=== PATIENT | male | born 1930 ===

== ENCOUNTER → 2016-04-05 | Outpatient (CLI) | payer MEDICARE, MEDICAID ==
[~2016-04-05] MED LIST: MELOXICAM7.5 MG/5 M ORAL; NORCO 10-325 T1 EACH ORAL; PLAVIX75 MG ORAL; PRAVASTATIN SOD10 M1 ORAL
--- NOTE | 2016-04-05 12:09 | Diagnostic Imaging Report ---
Indication: Cough Comparison: 01/05/16 2 views of the chest obtained. Bones are osteopenic. Aorta is enlarged. Heart size is normal. Lungs are hyperexpanded. No infiltrate is identified. Impression: COPD Atherosclerotic vascular disease Osteopenia
== END | disposition home or self-care (01) ==
LOC: RAD 09:49
DX: R05 Cough (principal); I25.10 Atherosclerotic heart disease of native coronary artery without angina pectoris; M85.80 Other specified disorders of bone density and structure, unspecified site
CPT/HCPCS: 71020

== ENCOUNTER 2016-06-25 13:58 | Inpatient (IN) | payer MEDICARE, MEDICAID ==
[~2016-06-25] VITALS: Ht 172.7 cm; Wt 70.3 kg
--- NOTE | 2016-06-25 16:20 | History & Physical ---
History and Physical History & Physicial HISTORY OF PRESENT ILLNESS elderly male with severe bone pain and disability; patient with diffuse pain; patient continues to smoke; he has no shortness of breath; he denies any diarrhea or vomiting patient events worsening over the past several days; no fevers or chills. no falls or trauma care reviewed in detail. no ill contacts; Active Medications (reviewed today): VITAMIN D 2000 UNIT ORAL CAPS (CHOLECALCIFEROL) 1 tab qd IPRATROPIUM BROMIDE 0.03 % NASAL SOLN (IPRATROPIUM BROMIDE) 2 puffs intranasaly 3 times daily PRAVASTATIN SODIUM 10 MG TABS (PRAVASTATIN SODIUM) 1 tab qd DIOVAN 80 MG CAP (VALSARTAN) 1 by mouth every day ASPIRIN 81 MG TABS (ASPIRIN) 1 by mouth every day Current Allergies: No known allergies No Known Drug Allergies Past History Past Medical History (reviewed - no changes required): Hypercholesterolemia -on meds prostate cancer prior XRT and po chemotherapy Surgical History (reviewed - no changes required): Removal of prostate tumor ( approximately 2009) Stroke 2012 Family History (reviewed - no changes required): Father is . Mother is . Social History (reviewed - no changes required): Luc is a retired person. Luc lives with his ex- spouse. He is with 1 child. Risk Factors: Smoked Tobacco Use: Current every day smoker Cigarettes: Yes -- 1/2 pack(s) per day, Year started: 1955 Years smoked: 60 Smokeless Tobacco Use: Never Passive smoke exposure: no Drug use: no Caffeine use: 4 drinks per day Alcohol use: no Seatbelt use: 100 % Sun Exposure: occasionally Review of Systems General: fatigue, malaise, weight loss Eyes: denies blurring, diplopia, irritation, discharge, vision loss, eye pain, photophobia Ear/Nose/Throat: some rhinitis reduced hearing Cardiovascular: Denies chest pain, palpitations, syncope, dyspnea on exertion, orthopnea, PND, peripheral edema Respiratory: cough-mainly at night wheezing and chest tightness Gastrointestinal: Denies nausea, vomiting, diarrhea, constipation, change in bowel habits, abdominal pain, melena, hematochezia, jaundice Genitourinary: prostate disorder Musculoskeletal: see HPI Skin: denies rash, itching, dryness, suspicious lesions Neurologic: memory loss Psychiatric: denies depression, anxiety, memory loss, mental disturbance, suicidal ideation, hallucinations, paranoia Endocrine: denies cold intolerance, heat intolerance, polydipsia, polyphagia, polyuria, weight change Hematologic/Lymphatic: denies abnormal bruising, bleeding, enlarged lymph nodes Allergic/Immunologic: denies urticaria, hay fever, persistent infections, HIV exposure Physical Exam General Appearance: well nourished, well hydrated, no acute distress Respiratory Respiratory Effort: no intercostal retractions or use of accessory muscles Palpation: normal fremitus Auscultation: no rales or wheezes moderate air entry without change Cardiovascular Palpation: no thrill or palpable murmurs, no displacement of PMI Auscultation: S1, S2, no murmur, rub, or gallop Peripheral Circulation: no cyanosis, clubbing, edema, or varicosities Musculoskeletal Gait and Station: unsteady has pain with range of motion alert and oriented x 3 Assessment severe pain stroke per history bone pain concern for metastatic disease history of abnormal CT chest Plan care noted bone scan check labs body CT ot and pt pain control DESTINI NEGRETE Jun 25, 2016 16:20
[2016-06-25 17:55] VITALS: BP 128/75
[2016-06-25] MEDS: Meloxicam 15 MG TAB ORAL SCH (18:05)
[2016-06-25] MEDS: Norco 5mg/325mg tab ORAL PRN (18:07)
[2016-06-25 20:14] LABS: BASOPHILS % (AUTO) 0.4 % (0.0-2.0); EOSINOPHILS % (AUTO) 0.4 % (0.0-3.0); LYMPHOCYTES % (AUTO) 8.1 % (20.0-45.0); MEAN CORPUSCULAR HEMOGLOBIN 31.4 PG (27.0-31.0); MEAN CORPUSCULAR HGB CONC 33.2 G/DL (32.0-36.0); MEAN CORPUSCULAR VOLUME 95 FL (80-99); MONOCYTES % (AUTO) 6.3 % (1.0-10.0); NEUTROPHILS % (AUTO) 84.8 % (45.0-75.0); PLATELET COUNT 174 K/UL (150-450); RED BLOOD COUNT 5.47 M/UL (4.70-6.10); RED CELL DISTRIBUTION WIDTH 12.9 % (11.6-14.8); WHITE BLOOD COUNT 10.6 K/UL (4.8-10.8)
[2016-06-25 20:29] LABS: ALANINE AMINOTRANSFERASE 11 U/L (3-41); ALBUMIN/GLOBULIN RATIO 1.2 (1.0-2.7); ANION GAP 19 (5-15); ASPARTATE AMINO TRANSFERASE 15 U/L (5-40); CALCIUM 9.4 mg/dL (8.6-10.2); CARBON DIOXIDE 22 mEQ/L (20-30); CHLORIDE 94 mEQ/L (98-107); CREATININE 2.4 mg/dL (0.7-1.2); HEMOLYSIS 5; POTASSIUM 4.7 mEQ/L (3.4-4.9); SODIUM 135 mEQ/L (135-145); TOTAL PROTEIN 6.9 g/dL (6.6-8.7)
[2016-06-25 20:43] LABS: BILIRUBIN,DIRECT 0.3 mg/dL (0.1-0.3)
[2016-06-25 23:51] VITALS: BP 130/76
[2016-06-26 04:00] VITALS: BP 115/74
[2016-06-26 06:56] LABS: ALANINE AMINOTRANSFERASE 10 U/L (3-41); ALBUMIN/GLOBULIN RATIO 1.2 (1.0-2.7); ANION GAP 14 (5-15); ASPARTATE AMINO TRANSFERASE 12 U/L (5-40); CALCIUM 9.1 mg/dL (8.6-10.2); CARBON DIOXIDE 25 mEQ/L (20-30); CHLORIDE 101 mEQ/L (98-107); CREATININE 2.3 mg/dL (0.7-1.2); HEMOLYSIS 3; POTASSIUM 4.5 mEQ/L (3.4-4.9); SODIUM 140 mEQ/L (135-145); TOTAL PROTEIN 6.4 g/dL (6.6-8.7)
[2016-06-26 07:14] LABS: BASOPHILS % (AUTO) 0.6 % (0.0-2.0); EOSINOPHILS % (AUTO) 1.4 % (0.0-3.0); MEAN CORPUSCULAR HEMOGLOBIN 30.9 PG (27.0-31.0); MEAN CORPUSCULAR HGB CONC 32.8 G/DL (32.0-36.0); MEAN CORPUSCULAR VOLUME 94 FL (80-99); MEAN PLATELET VOLUME 9.4 FL (6.5-10.1); MONOCYTES % (AUTO) 9.2 % (1.0-10.0); NEUTROPHILS % (AUTO) 77.7 % (45.0-75.0); PLATELET COUNT 193 K/UL (150-450); RED BLOOD COUNT 5.31 M/UL (4.70-6.10); RED CELL DISTRIBUTION WIDTH 12.8 % (11.6-14.8); WHITE BLOOD COUNT 9.1 K/UL (4.8-10.8)
[2016-06-26] MEDS: Norco 5mg/325mg tab ORAL PRN ×2 (08:18→20:40)
[2016-06-26] MEDS: Meloxicam 15 MG TAB ORAL SCH (08:18)
[2016-06-26 08:37] VITALS: BP 137/79
[2016-06-26 12:09] VITALS: BP 133/75
--- NOTE | 2016-06-26 12:39 | Diagnostic Imaging Report ---
Indication: Shortness of breath, weight loss, severe bone pain and disability Technique: Patient given oral contrast. No IV contrast, for referring physician request. Spiral acquisitions obtained through the chest, abdomen, and pelvis. Multiplanar reconstructions were generated. Total dose length product 1098 mGycm. CTDIvol(s) 13 and 10 mGy. Radiation dose was minimized using automated exposure control Comparison: None Findings: Chest: There is an irregular and possibly spiculated mass in the right lower lobe, images 55 through 59, which measures 27 mm long axis dimension. There is a calcification at the medial periphery of this. The lungs demonstrate posterior and lateral dependent atelectatic changes. Posterior dependent groundglass opacities are also likely on the basis of atelectasis. Numerous small subpleural blebs are seen bilaterally. Groundglass opacity in the left lung apex may reflect an area of acute inflammation in the more likely represents post inflammatory change. Some atelectasis or scarring is seen in the medial right middle lobe. There is some thickening of the minor fissure. No definite infiltrates, effusions, masses, or nodules are demonstrated. The heart is borderline enlarged. No pericardial effusion demonstrated. Calcified granulomatous lymph nodes are seen in the bilateral hilar regions. No mediastinal or hilar mass or adenopathy. The included portions of the thyroid are unremarkable. No axillary or chest wall mass or adenopathy. The esophagus is unremarkable. The bones demonstrate an osteolytic lesion of the left posterior ninth rib; a short section of rib is nearly completely destroyed, and lesion measures approximately 2 cm long axis dimension. Abdomen pelvis: There is mild left hydronephrosis and left hydroureter. Hydroureter extends to the level of the ureterovesicular junction, where there is a 3 mm calculus. There is a perinephric fat stranding on the left. No intrarenal calculi. No right renal or ureteral calculi. The kidneys demonstrate multiple cysts bilaterally. There is also a hyperdense cyst in the posterior right renal interpolar region. There are multiple parapelvic cysts on the left. There is nonspecific stranding of the perinephric fat on the left. The appendix is normal. There is colonic diverticulosis. No evidence of diverticulitis. No small bowel distention or small bowel wall thickening. No free or loculated intraperitoneal air or fluid is evident. The lack of IV contrast limits assessment of solid organs. The liver demonstrates a small focal area of fatty replacement in the usual location adjacent to the fissure for the ligamentum teres. A small granulomatous calcification is seen within the right lobe. The gallbladder, bile ducts are unremarkable. The pancreas is markedly atrophic, nearly completely replaced with fat. The spleen, adrenals are unremarkable. No retroperitoneal or mesenteric mass or adenopathy. No pelvic mass or adenopathy. Suspect prior prostatectomy, although this region is not included on the available imaging volume. There are surgical clips noted. Impression: Positive for 3 mm left distal ureteral calculus, results in left hydronephrosis and hydroureter. 27 mm right lower lobe lung mass, worrisome for neoplasm. 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 This is worrisome for metastatic neoplasm Pulmonary parenchymal changes, as described, including posterior and lateral dependent atelectatic changes, numerous small subpleural blebs Evidence of old granulomatous disease Multiple bilateral renal cysts Colonic diverticulosis. No evidence of diverticulitis Old granulomatous disease within the liver Evidence of prior prostatectomy Dr. Junior notified at the time of interpretation The CT scanner at [facility] is accredited by the [employer] and the scans are performed using protocols designed to limit -- radiation exposure to as low as reasonably achievable to attain images of sufficient resolution adequate for diagnostic evaluation.
[2016-06-26] MEDS ORDERED: NS 275ml ONE (13:39)
[2016-06-26] MEDS ORDERED: Tubing IV Secondary IV ONE (13:39)
--- NOTE | 2016-06-26 14:42 | Diagnostic Imaging Report ---
Indication: PAIN Technique: IV administration 25.3 mCi 99 M technetium MDP. Whole body and spot images were obtained. Comparison: CT scan of earlier the same day Findings:Increased uptake is seen in the left posterior ninth rib, corresponding to an osteolytic abnormality demonstrated on CT scan of earlier the same day. There is a focus of slightly increased uptake in the posterior right sixth rib at the costovertebral junction. There is no correlate on CT. There is increased uptake within the T12 vertebral body. Retrospect, CT demonstrates a mild compression fracture deformity of the T12 vertebral body. No other abnormal foci of increased or decreased osseous uptake demonstrated. There is left hydronephrosis and tracer within the left ureter. Normal bladder activity is demonstrated. Normal right renal activity is demonstrated Impression:Increased activity in the posterior left ninth rib, corresponding to an osteolytic focus described on recent CT, and likely representing a neoplastic deposit. Slightly more subtle increased activity in the medial posterior right sixth rib. No CT correlate, this could likewise indicate bony involvement by tumor Increased uptake within the T12 vertebral body. This is compatible with an acute or subacute T12 compression fracture. Note that recent CT in retrospect does demonstrate a mild compression fracture deformity of the T12 vertebral body. This would be amenable to percutaneous kyphoplasty if clinically indicated Left hydronephrosis, consistent with obstructive uropathy secondary to a distal ureteral stone demonstrated on the recent CT
[2016-06-26 16:00] VITALS: BP 144/77
--- NOTE | 2016-06-26 16:16 | Diagnostic Imaging Report ---
Indication: Chest pain Technique: One view of the chest Comparison: 04/05/2016 Findings: Lungs and pleural spaces are clear. Heart size is normal. Aorta is tortuous and ectatic. The upper mediastinum is unremarkable. There is no significant interim change Impression: No acute process
--- NOTE | 2016-06-26 16:34 | General Progress Note ---
Assessment/Plan Assessment/Plan Assessment severe pain stroke per history bone pain concern for metastatic disease history of abnormal CT chest bone mets??? Plan care noted bone scan reviewed check labs body CT noted ot and pt pain control consider oncology evaluation Subjective Allergies: Coded Allergies: No Known Allergies (Unverified , 06/25/16) Subjective care noted and reviewed having pain and discomfort Objective Last 24 Hour Vital Signs Date Time Temp Pulse Resp B/P Pulse Ox O2 Delivery O2 Flow Rate FiO2 06/26/16 16:00 97.5 20 144/77 67 Room Air 06/26/16 12:09 97.0 68 20 133/75 95 Room Air 06/26/16 08:53 137/79 06/26/16 08:37 97.0 64 20 137/79 95 Room Air 06/26/16 08:18 97.0 06/26/16 04:00 97.8 68 18 115/74 93 Room Air 06/25/16 23:51 97.8 76 18 130/76 94 Room Air 06/25/16 17:55 97.9 77 20 128/75 93 Room Air Intake and Output 06/25/16 06/26/16 19:00 07:00 Intake Total 100 ml 1320 ml Balance 100 ml 1320 ml Intake Oral 120 ml IV Total 100 ml 1200 ml Laboratory Tests 06/25/16 19:30: White Blood Count 10.6, Red Blood Count 5.47, Hemoglobin 17.2, Hematocrit 51.8, Mean Corpuscular Volume 95, Mean Corpuscular Hemoglobin 31.4H, Mean Corpuscular Hemoglobin Concent 33.2, Red Cell Distribution Width 12.9, Platelet Count 174, Mean Platelet Volume 9.0, Neutrophils (%) (Auto) 84.8H, Lymphocytes (%) (Auto) 8.1L, Monocytes (%) (Auto) 6.3, Eosinophils (%) (Auto) 0.4, Basophils (%) (Auto ) 0.4, Sodium Level 135, Potassium Level 4.7, Chloride Level 94L, Carbon Dioxide Level 22, Anion Gap 19H, Blood Urea Nitrogen 31H, Creatinine 2.4H, Estimat Glomerular Filtration Rate , Glucose Level 110H, Calcium Level 9.4, Total Bilirubin 1.3H, Direct Bilirubin 0.3, Aspartate Amino Transf (AST/SGOT) 15 , Alanine Aminotransferase (ALT/SGPT) 11, Alkaline Phosphatase 91, Total Protein 6.9, Albumin 3.8, Globulin 3.1, Albumin/Globulin Ratio 1.2 06/26/16 05:15: White Blood Count 9.1, Red Blood Count 5.31, Hemoglobin 16.4, Hematocrit 50.1, Mean Corpuscular Volume 94, Mean Corpuscular Hemoglobin 30.9, Mean Corpuscular Hemoglobin Concent 32.8, Red Cell Distribution Width 12.8, Platelet Count 193, Mean Platelet Volume 9.4, Neutrophils (%) (Auto) 77.7H, Lymphocytes (%) (Auto) 11.0L, Monocytes (%) (Auto) 9.2, Eosinophils (%) (Auto) 1.4, Basophils (%) (Auto ) 0.6, Sodium Level 140, Potassium Level 4.5, Chloride Level 101, Carbon Dioxide Level 25, Anion Gap 14, Blood Urea Nitrogen 34H, Creatinine 2.3H, Estimat Glomerular Filtration Rate , Glucose Level 90, Calcium Level 9.1, Total Bilirubin 1.0, Aspartate Amino Transf (AST/SGOT) 12, Alanine Aminotransferase ( ALT/SGPT) 10, Alkaline Phosphatase 86, Total Protein 6.4L, Albumin 3.5, Globulin 2.9, Albumin/Globulin Ratio 1.2 Height (Feet): 5 Height (Inches): 8.00 Weight (Pounds): 155 Objective WDWN NAD clear breath sounds bilaterally without rhonchi or wheeze [id number] without MRG NABS nontender no HSM no CCE nonfocal has pain with ROM DESTINI NEGRETE Jun 26, 2016 16:34
[2016-06-26 20:33] VITALS: BP 142/77
--- NOTE | 2016-06-26 21:57 | Consultation ---
Consult Note Consult Note Oncology Consultation Note DOS: 06/26/16 Reason for consultation: evaluation of metastatic prostate ca Requesting : Vernon ID: 86 yo central african speaking elderly male with severe bone pain and disability; patient with diffuse pain; patient continues to smoke; he has no shortness of breath; he denies any diarrhea or vomiting patient events worsening over the past several days; no fevers or chills. no falls or trauma. care reviewed in detail. no ill contacts; CR 2.3. CT reviewed and showed 27 mm right lower lobe lung mass, worrisome for neoplasm, Osteolytic lesion of the left posterior ninth rib. This is worrisome for metastatic neoplasm, psa has been ordered Active Medications: VITAMIN D 2000 UNIT ORAL CAPS (CHOLECALCIFEROL) 1 tab qd IPRATROPIUM BROMIDE 0.03 % NASAL SOLN (IPRATROPIUM BROMIDE) 2 puffs intranasaly 3 times daily PRAVASTATIN SODIUM 10 MG TABS (PRAVASTATIN SODIUM) 1 tab qd DIOVAN 80 MG CAP (VALSARTAN) 1 by mouth every day ASPIRIN 81 MG TABS (ASPIRIN) 1 by mouth every day Current Allergies: No Known Drug Allergies Past Medical History: Hypercholesterolemia -on meds, prostate cancer prior XRT and po chemotherapy Surgical History (reviewed - no changes required): Removal of prostate tumor ( approximately 2009), Stroke 2012 Family History (reviewed - no changes required): Father is . Mother is . Social History (reviewed - no changes required): Luc is a retired person. Luc lives with his ex- spouse. He is with 1 child. Risk Factors: Smoked Tobacco Use: Current every day smoker: Yes -- 1/2 pack(s) per day, Year started: 1955 Years smoked: 60 Smokeless Tobacco Use: Never Caffeine use: 4 drinks per days Review of Systems General: fatigue, malaise, weight loss Eyes: denies blurring, diplopia, irritation, discharge, vision loss, eye pain, photophobia Ear/Nose/Throat: some rhinitis, reduced hearing Cardiovascular: Denies chest pain, palpitations, syncope Respiratory: cough-mainly at night Gastrointestinal: Denies nausea, vomiting, diarrhea Genitourinary: prostate disorder Musculoskeletal: see HPI Skin: denies rash, itching, dryness, suspicious lesions Neurologic: memory loss Psychiatric: denies depression, anxiety, memory loss Endocrine: denies cold intolerance, heat intolerance, polydipsia Hematologic/Lymphatic: denies abnormal bruising Allergic/Immunologic: denies urticaria, hay fever Physical Exam Vitals: reviewed and are wnl General Appearance: well nourished, well hydrated, no acute distress Pulm: CTAB, no cwr CV: RRR, no mgr Abd: soft, nt, nd Ext: no cce Labs: Test 06/26/16 05:15 White Blood Count 9.1 K/UL (4.8-10.8) Red Blood Count 5.31 M/UL (4.70-6.10) Hemoglobin 16.4 G/DL (14.2-18.0) Hematocrit 50.1 % (42.0-52.0) Mean Corpuscular Volume 94 FL (80-99) Mean Corpuscular Hemoglobin 30.9 PG (27.0-31.0) Mean Corpuscular Hemoglobin Concent 32.8 G/DL (32.0-36.0) Red Cell Distribution Width 12.8 % (11.6-14.8) Platelet Count 193 K/UL (150-450) Mean Platelet Volume 9.4 FL (6.5-10.1) Neutrophils (%) (Auto) 77.7 % (45.0-75.0) H Lymphocytes (%) (Auto) 11.0 % (20.0-45.0) L Monocytes (%) (Auto) 9.2 % (1.0-10.0) Eosinophils (%) (Auto) 1.4 % (0.0-3.0) Basophils (%) (Auto) 0.6 % (0.0-2.0) Sodium Level 140 mEQ/L (135-145) Potassium Level 4.5 mEQ/L (3.4-4.9) Chloride Level 101 mEQ/L (98-107) Carbon Dioxide Level 25 mEQ/L (20-30) Anion Gap 14 (5-15) Blood Urea Nitrogen 34 mg/dL (7-23) H Creatinine 2.3 mg/dL (0.7-1.2) H Estimat Glomerular Filtration Rate mL/min (>60) Glucose Level 90 mg/dL (74-106) Calcium Level 9.1 mg/dL (8.6-10.2) Total Bilirubin 1.0 mg/dL (0.0-1.2) Aspartate Amino Transf (AST/SGOT) 12 U/L (5-40) Alanine Aminotransferase (ALT/SGPT) 10 U/L (3-41) Alkaline Phosphatase 86 U/L (40-129) Total Protein 6.4 g/dL (6.6-8.7) L Albumin 3.5 g/dL (3.5-5.2) Globulin 2.9 g/dL Albumin/Globulin Ratio 1.2 (1.0-2.7) Imaging: CT A/P Impression: Positive for 3 mm left distal ureteral calculus, results in left hydronephrosis and hydroureter. 27 mm right lower lobe lung mass, worrisome for neoplasm. 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 This is worrisome for metastatic neoplasm Pulmonary parenchymal changes, as described, including posterior and lateral dependent atelectatic changes, numerous small subpleural blebs Evidence of old granulomatous disease Multiple bilateral renal cysts Colonic diverticulosis. No evidence of diverticulitis Old granulomatous disease within the liver Evidence of prior prostatectomy Assessment: # 27 mm lung lesion and a left posterior rib lung lesion - is likely consistent with prostate can, will send off tumor markers for further evaluation, nuclear bone scan confirms the location of this lesion # Bony pain is likely related to metastatic disease # stroke # Evidence of prior prostatectomy # Hx of prostate cancer # Multiple bilateral cysts Recs: - For bony mets and pain control, pamidronate administered - Monitor counts - Have ordered for psa, ca 19-9, cea tumor markers - Continue po antihormonal treatment for prostate cancer - Oncology followup if performance status allows - Pain control - Appreciate consultation! Continue to follow Ochoa Canales Jun 26, 2016 21:57
[2016-06-26] MEDS ORDERED: Pamidronate Disodium Inj 60 MG in Sodium Chloride 550 ML IVPB ONE (22:30)
[2016-06-26 23:10] LABS: PSA TOTAL < 0.1 ng/mL (< 4.5)
[2016-06-27] VITALS: BP 130/81
[2016-06-27 04:00] VITALS: BP 114/61
[2016-06-27] MEDS ORDERED: Morphine Sulfate 2mg/ml Inj IVP PRN (07:30)
[2016-06-27] MEDS: Norco 5mg/325mg tab ORAL PRN (07:41)
[2016-06-27] MEDS: Meloxicam 15 MG TAB ORAL SCH (07:41)
[2016-06-27 07:48] VITALS: BP 141/72
--- NOTE | 2016-06-27 08:26 | General Progress Note ---
Assessment/Plan Assessment/Plan Assessment severe pain stroke per history bone pain concern for metastatic disease history of abnormal CT chest bone mets likely elevated PSA likely prostate ca Plan care noted bone scan reviewed check labs body CT noted ot and pt pain control oncology evaluation noted dc plans need to update son impression, plan, and exam edited and reviewed in detail care discussed with RN Subjective Allergies: Coded Allergies: No Known Allergies (Unverified , 06/25/16) Subjective care noted and reviewed having pain and discomfort now requiring morphine onc appreciated Objective Last 24 Hour Vital Signs Date Time Temp Pulse Resp B/P Pulse Ox O2 Delivery O2 Flow Rate FiO2 06/27/16 07:48 98.0 62 21 141/72 97 Room Air 06/27/16 07:44 141/72 06/27/16 04:00 97.5 65 19 114/61 97 Room Air 06/27/16 00:00 98.1 61 20 130/81 97 Room Air 06/26/16 21:39 97.3 06/26/16 20:33 97.3 69 18 142/77 96 Room Air 06/26/16 16:00 97.5 20 144/77 67 Room Air 06/26/16 12:09 97.0 68 20 133/75 95 Room Air 06/26/16 08:53 137/79 06/26/16 08:37 97.0 64 20 137/79 95 Room Air Intake and Output 06/26/16 06/27/16 19:00 07:00 Intake Total 1060 ml 425.0 ml Balance 1060 ml 425.0 ml Intake Oral 360 ml 150 ml IV Total 700 ml 275.0 ml # Voids 2 Laboratory Tests 06/26/16 22:00: Carcinoembryonic Antigen 6.5H, CA 19-9 Antigen 60.61H, Prostate Specific Antigen < 0.1, Free Prostate Specific Antigen [Pending], Percent Free Prostate Specific Ag [Pending], Prostate Specific Antigen Total [Pending] Height (Feet): 5 Height (Inches): 8.00 Weight (Pounds): 155 Objective WDWN NAD clear breath sounds bilaterally without rhonchi or wheeze [id number] without MRG NABS nontender no HSM no CCE nonfocal has pain with ROM DESTINI NEGRETE Jun 27, 2016 08:26
[2016-06-27 12:15] VITALS: BP 125/72
--- NOTE | 2016-06-27 14:44 | General Progress Note ---
Assessment/Plan Assessment/Plan Assessment: # 27 mm lung lesion and a left posterior rib lung lesion - psa is 0.1, thus unlikely is prostate ca. Given patient's smoking history, high concern for lung cancer # Bony pain is likely related to metastatic disease # stroke # Evidence of prior prostatectomy # Hx of prostate cancer # Multiple bilateral cysts Recs: - Do not have a biopsy but concerning for lung ca - For bony mets and pain control, pamidronate administered - Monitor counts - Pending Free and total psa - Continue po antihormonal treatment for prostate cancer - Oncology followup if performance status allows - Pain control - Appreciate consultation! Continue to follow Subjective Constitutional: Reports: no symptoms HEENT: Reports: no symptoms Cardiovascular: Reports: no symptoms Respiratory: Reports: no symptoms Gastrointestinal/Abdominal: Reports: no symptoms Genitourinary: Reports: no symptoms Neurologic/Psychiatric: Reports: no symptoms Endocrine: Reports: no symptoms Hematologic/Lymphatic: Reports: anemia Allergies: Coded Allergies: No Known Allergies (Unverified , 06/25/16) Subjective TALKED to the son today, psa came back <0.1 Objective Last 24 Hour Vital Signs Date Time Temp Pulse Resp B/P Pulse Ox O2 Delivery O2 Flow Rate FiO2 06/27/16 12:15 97.3 58 20 125/72 95 Room Air 06/27/16 08:40 98.0 06/27/16 07:48 98.0 62 21 141/72 97 Room Air 06/27/16 07:44 141/72 06/27/16 04:00 97.5 65 19 114/61 97 Room Air 06/27/16 00:00 98.1 61 20 130/81 97 Room Air 06/26/16 20:33 97.3 69 18 142/77 96 Room Air 06/26/16 16:00 97.5 20 144/77 67 Room Air Intake and Output 06/26/16 06/27/16 19:00 07:00 Intake Total 1060 ml 425.0 ml Balance 1060 ml 425.0 ml Intake Oral 360 ml 150 ml IV Total 700 ml 275.0 ml # Voids 2 Laboratory Tests 06/26/16 22:00: Carcinoembryonic Antigen 6.5H, CA 19-9 Antigen 60.61H, Prostate Specific Antigen < 0.1, Free Prostate Specific Antigen [Pending], Percent Free Prostate Specific Ag [Pending], Prostate Specific Antigen Total [Pending] Height (Feet): 5 Height (Inches): 8.00 Weight (Pounds): 155 General Appearance: no apparent distress EENT: normal ENT inspection Neck: normal alignment Cardiovascular: regular rhythm Respiratory/Chest: normal breath sounds Abdomen: non tender Extremities: non-tender Edema: mild edema Neurologic: alert Skin: warm/dry Ochoa Canales Jun 27, 2016 14:44
[2016-06-27 16:12] VITALS: BP 120/63
[2016-06-27 20:00] VITALS: BP 131/71
[2016-06-28] VITALS: BP 118/68
[2016-06-28 04:00] VITALS: BP 117/65
[2016-06-28 07:37] VITALS: BP 121/75
[2016-06-28] MEDS: Meloxicam 15 MG TAB ORAL SCH (07:56)
--- NOTE | 2016-06-28 08:31 | General Progress Note ---
Assessment/Plan Assessment/Plan Assessment: # 27 mm lung lesion and a left posterior rib lung lesion - psa is 0.1, thus unlikely is prostate ca. Given patient's smoking history, high concern for lung cancer # Bony pain is likely related to metastatic disease # stroke # Evidence of prior prostatectomy # Hx of prostate cancer # Multiple bilateral cysts Recs: - Have discussed with Dr. Junior who will discuss with son next appropriate step - For bony mets and pain control, pamidronate administered - Monitor counts - Pending Free and total psa - Continue po antihormonal treatment for prostate cancer - Oncology followup if performance status allows - Pain control - Appreciate consultation! Continue to follow Subjective Allergies: Coded Allergies: No Known Allergies (Unverified , 06/25/16) Subjective psa 0.1, talked to son yesterday as well as Dr. Junior, patient is stable this am Objective Last 24 Hour Vital Signs Date Time Temp Pulse Resp B/P Pulse Ox O2 Delivery O2 Flow Rate FiO2 06/28/16 08:01 121/75 06/28/16 07:37 97.0 66 15 121/75 93 Room Air 06/28/16 04:00 98.2 65 19 117/65 98 Room Air 06/28/16 03:52 98.2 06/28/16 00:00 98.2 70 18 118/68 94 Room Air 06/27/16 20:00 98.2 77 20 131/71 96 Room Air 06/27/16 16:12 98.0 98 21 120/63 96 Room Air 06/27/16 12:15 97.3 58 20 125/72 95 Room Air 06/27/16 08:40 98.0 Intake and Output 06/27/16 06/28/16 19:00 07:00 Intake Total 490 ml 1000 ml Balance 490 ml 1000 ml Intake Oral 490 ml IV Total 1000 ml # Voids 5 2 Height (Feet): 5 Height (Inches): 8.00 Weight (Pounds): 155 General Appearance: alert EENT: TMs normal Neck: supple Cardiovascular: regular rhythm Respiratory/Chest: normal breath sounds Abdomen: non tender Extremities: non-tender Edema: 1+ Leg (L), 1+ Leg (R) Edema: mild edema Neurologic: alert Skin: warm/dry Ochoa Canales Jun 28, 2016 08:31
--- NOTE | 2016-06-28 08:37 | General Progress Note ---
Assessment/Plan Assessment/Plan Assessment severe pain stroke per history bone pain concern for metastatic disease history of abnormal CT chest bone mets likely normal PSA elevated CA19-9 ho prostate ca possible lung ca Plan care noted bone scan reviewed check labs body CT noted ot and pt pain control oncology evaluation noted dc plans will update son may need bone biopsy or navigation bronchoscopy dc today with HH impression, plan, and exam edited and reviewed in detail care discussed with RN Subjective Allergies: Coded Allergies: No Known Allergies (Unverified , 06/25/16) Subjective care noted and reviewed some pain and discomfort now requiring morphine onc appreciated and discussed Objective Last 24 Hour Vital Signs Date Time Temp Pulse Resp B/P Pulse Ox O2 Delivery O2 Flow Rate FiO2 06/28/16 08:01 121/75 06/28/16 07:37 97.0 66 15 121/75 93 Room Air 06/28/16 04:00 98.2 65 19 117/65 98 Room Air 06/28/16 03:52 98.2 06/28/16 00:00 98.2 70 18 118/68 94 Room Air 06/27/16 20:00 98.2 77 20 131/71 96 Room Air 06/27/16 16:12 98.0 98 21 120/63 96 Room Air 06/27/16 12:15 97.3 58 20 125/72 95 Room Air 06/27/16 08:40 98.0 Intake and Output 06/27/16 06/28/16 19:00 07:00 Intake Total 490 ml 1000 ml Balance 490 ml 1000 ml Intake Oral 490 ml IV Total 1000 ml # Voids 5 2 Height (Feet): 5 Height (Inches): 8.00 Weight (Pounds): 155 Objective WDWN NAD clear breath sounds bilaterally without rhonchi or wheeze [id number] without MRG NABS nontender no HSM no CCE nonfocal has pain with ROM DESTINI NEGRETE Jun 28, 2016 08:37
--- NOTE | 2016-06-28 10:34 | Diagnostic Imaging Report ---
Indication: Abnormal liver function tests and renal function tests Technique: Buchanan-scale and duplex images of the upper abdomen were obtained Comparison: Reference made to CT of 06/25/2016 Findings: . Gallbladder is unremarkable, without stones, wall thickening, nor pericholecystic fluid. Common bile duct measures 4 mm in diameter. No intrahepatic biliary ductal dilatation. Liver demonstrates normal echogenicity, no focal abnormality. Portal vein and hepatic veins are patent.. Pancreas is unremarkable. Spleen is enlarged, measuring 16 cm long axis dimension.. Left kidney measures 10.1 cm in length. Right kidney measures 10.5 cm length. Both kidneys demonstrate normal echogenicity. There is no hydronephrosis. Both kidneys demonstrate multiple cysts. . Non-aneurysmal abdominal aorta. Impression: Negative for gallstones or dilated ducts No sonographic evidence of pancreatic mass. Note, however, limited sensitivity of ultrasound for such. Note that prior CT scan was done without contrast, likewise limiting sensitivity. Consider contrast CT or MRI for more sensitive evaluation if there is high clinical suspicion Bilateral renal cysts. No evidence of solid renal mass Note that left hydronephrosis described on recent CT scan is not currently evident. May indicate interim passage of previously demonstrated left distal ureter calculus. Correlate with clinical findings Splenomegaly, in retrospect also evident on recent CT scan
[2016-06-28 11:39] VITALS: BP 147/77
[2016-06-28 12:24] LABS: PSA FREE <0.01 ng/mL; PSA TOTAL <0.1 ng/mL (0.0-4.0)
[2016-06-28] MEDS ORDERED: PRAVASTATIN SOD10 M1 ORAL (12:49)
[2016-06-28] MEDS ORDERED: PLAVIX75 MG ORAL (12:49)
[2016-06-28] MEDS ORDERED: MELOXICAM7.5 MG/5 M ORAL (12:50)
[2016-06-28] MEDS ORDERED: NORCO 10-325 T1 EACH ORAL (12:51)
--- NOTE | 2016-07-01 08:20 | Discharge Summary ---
Discharge Summary Hospital Course Date of Admission Jun 25, 2016 at 15:14 Date of Discharge Jun 28, 2016 at 14:00 Admitting Diagnosis HPI Luc Amador is a 86 year old male who was admitted on Jun 25, 2016 at 15:14 for Intractable Back Pain Hospital Course dc summary #[id number] Discharge Medications Continued Medications: Clopidogrel Bisulfate* (Plavix*) 75 Mg Tablet 75 MG ORAL DAILY, TAB Hydrocodone Bit/Acetaminophen 10-325* (Lena 10-325*) 1 Each Tablet 1 TAB ORAL Q6H PRN for For Pain, #60 TAB 0 Refills PRN PAIN Meloxicam (Meloxicam) 7.5 Mg/5 Ml Oral.susp 15 MG ORAL DAILY, #100 ML 0 Refills Pravastatin Sod (Pravastatin Sod) 10 Mg Tablet 10 MG ORAL BEDTIME, TAB Discharge Condition Upon Discharge: stable Discharge Disposition Patient was discharged to Home with Home Health(06) Discharge Diagnoses: Discharge Instructions Discharge Instructions Special Instructions I have been assigned to complete a D/C Summary on this account. I was not involved in the patient management Carmelina Pereira NP ([facility]) Jul 01, 2016 08:20
--- NOTE | 2016-07-01 09:17 | Discharge Summary 2 SIG ---
DATE OF ADMISSION: 06/25/2016 DATE OF DISCHARGE: 06/28/2016 REASON FOR ADMISSION: 86-year-old male with history of prostate cancer , status post prostatectomy and history of smoking, presented with severe intractable bone pain. He had no shortness of breath. He denied diarrhea or vomiting. The pain was worse for the last few days. No fevers. No chills. No falls. No trauma. The patient admitted for further management. ADMITTING DIAGNOSES: 1. Intractable bone pain. 2. History of cerebrovascular accident. 3. Rule out metastatic disease. 4. History of abnormal CAT scan. 5. Active smoker. HOSPITAL STAY: The patient admitted. Practice Management Consultant/oncologist was consulted. The patient undergone bone scan as well as the CT of the chest, abdomen, and pelvis. CT of the chest, abdomen, and pelvis revealed right lower lobe lung mass 27 mm, worrisome for neoplasm. 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 Worrisome for metastatic neoplasm. Evidence of prior prostatectomy. Subsequently, bone scan was done and revealed increased activity in the posterior left ninth rib, corresponding to osteolytic lesion, seen on CT chest likely representing neoplastic deposit. Practice Management Consultant/oncologist followed. Cancer tumor markers were ordered. Noted elevated CA 19- 9, elevated CEA , while free PSA, total PSA, and percentage free PSA were all within normal limits. Blood culture negative. Sputum culture negative. The patient was working with physical and occupational therapists. Pain management was addressed. Antihormonal therapy for prostate cancer was continued. The patient was discharged home with home health for PT/OT. Further care discussed with the son. The patient to follow up with the oncologist/cellophane worker as outpatient and primary medical doctor. DISCHARGE DIAGNOSES: 1. Right lower lobe lung mass, possibly lung carcinoma 2. Elevated tumor markers (CA-19-9, CEA). 2. Intractable bone pain. 3. Likely metastatic disease. 4. History of cerebrovascular accident. 5. History of prostate cancer with total prostatectomy. 6. Active smoker. DISCHARGE MEDICATIONS: See medication reconciliation list. DISCHARGE INSTRUCTIONS: The patient discharged home with home health. FOLLOWUP: Follow up with the cellophane worker/oncologist as outpatient as well as the primary medical doctor. The patient counseled on smoking cessation. The patient declined nicotine patch. Eber Junior M.D. I have been assigned to dictate discharge summary on this account and I was not involved in the patient's management. Carmelina Pereira N.P. ([facility]) DR: Daryl JOB#: [id number] CC: DAVID
== END 2016-06-28 14:00 | disposition home health service (06) | DRG 543 ==
LOC: 4W 15:14
DX: C79.51 Secondary malignant neoplasm of bone (principal); C78.00 Secondary malignant neoplasm of unspecified lung; N13.2 Hydronephrosis with renal and ureteral calculous obstruction; M89.8X9 Other specified disorders of bone, unspecified site; M54.9 Dorsalgia, unspecified; Z86.73 Personal history of transient ischemic attack (TIA), and cerebral infarction without residual deficits; Z85.46 Personal history of malignant neoplasm of prostate; F17.200 Nicotine dependence, unspecified, uncomplicated; E78.00 Pure hypercholesterolemia, unspecified; Z92.3 Personal history of irradiation; K57.90 Diverticulosis of intestine, part unspecified, without perforation or abscess without bleeding; Z79.02 Long term (current) use of antithrombotics/antiplatelets
CPT/HCPCS: 36415; 71010; 71250; 74176; 76700; 78306; 80053; 82248; 82378; 84153; 84154; 85025; 86301; 87040; 87070; 87086; 87205; 92610; J2430